=== PATIENT | male | born 1970 | race Caucasian/White ===

== ENCOUNTER 2018-12-07 05:34 | Inpatient (IN) ==
[2018-11-24 13:38] LABS: Apearance,Urine CLEAR (Clear); Bilirubin,Urine Negative (Negative); Blood, Urine Negative (Negative); Glucose,Urine (UA) Negative (Negative); Ketones,Urine Negative (Negative); Nitrite,Urine Negative (Negative); Protein,Urine Negative; RBC,Urine 1 /HPF (0-4); Urine Color Yellow (Yellow); Urine Specific Gravity 1.006 (1.001-1.035); Urine Urobilinogen < 2.0 EU/DL (0.2-1.0); WBC,Urine <1 /HPF (0-6)
[2018-11-24 13:38] LABS: Basophils % 0.4 % (0.0-0.8); Eosinophils # 0.1 10*3/uL (0.0-0.87); Eosinophils % 1.8 % (0.00-10.9); Hematocrit 46.4 VOL% (42.0-52.0); Hemoglobin 16.4 GM/DL (14.0-18.0); Immature Granulocytes % 0.4 %; Immature Granulocytes Absolute 0.02 #; Lymphocytes # 1.5 10*3/uL (1.4-4.0); Lymphocytes % 28.2 % (21.2-54.2); Mean Corpuscular HGB Conc 35.3 GM/DL (32-36); Mean Corpuscular Volume 87.1 FL (87-102); Mean Platelet Volume 9.2 FL (9.6-12.0); Monocytes % 9.1 % (1.7-12.7); Neutrophils % 60.1 % (38.7-73.9); Platelet Count 192 T/CUMM (130-400); Red Blood Count 5.33 MC/CUMM (3.8-5.5); Red Cell Distribution Width 13.2 % (9.3-17.3); White Blood Count 5.1 T/CUMM (4-12)
[2018-11-24 14:05] LABS: Calcium 9.3 MG/DL (8.5-10.1); Osmolality,Calculated 281.1 MOS/KG (273-304)
[2018-12-07] MEDS ORDERED: cefTRIAXone 1,000 MG VIAL ONE (05:53)
[2018-12-07] MEDS ORDERED: ALVIMOPAN 12 MG CAPSULE ONE (05:53)
[2018-12-07] MEDS ORDERED: SODIUM PHOSPHATE ENEMA 133 ML BOTTLE RECTAL ONE ×2 (05:53→06:35)
[2018-12-07] MEDS ORDERED: cefTRIAXone 1,000 MG in SYRINGE 1 EACH IV ONE (06:00)
[2018-12-07] MEDS ORDERED: ALVIMOPAN 12 MG CAPSULE PO ONE (06:00)
[2018-12-07] MEDS: LACTATED RINGERS 1,000 ML IV SCH ×2 (06:21→15:06)
[2018-12-07] MEDS ORDERED: FAMOTIDINE 20 MG TABLET PO ONE (06:35)
[2018-12-07] MEDS ORDERED: FAMOTIDINE 20 MG TABLET ONE (06:37)
[2018-12-07] MEDS ORDERED: FUROSEMIDE 20 MG/2 ML VIAL ONE (06:46)
[2018-12-07] MEDS ORDERED: ACETAMINOPHEN 1,000 MG/100 ML VIAL IV ONE ×2 (06:46→13:54)
[2018-12-07] MEDS ORDERED: MANNITOL 12.5 GM/50 ML VIAL IV ONE (06:46)
[2018-12-07] MEDS ORDERED: ROPIVACAINE 0.5% 30 ML VIAL ONE (13:11)
[2018-12-07 13:26] LABS: Apearance,Urine CLEAR (Clear); Bilirubin,Urine Negative (Negative); Blood, Urine Large mg/dL (Negative); Glucose,Urine (UA) Negative (Negative); Ketones,Urine Negative (Negative); Mucus,Urine Occasional /LPF (Occasional); Nitrite,Urine Negative (Negative); Protein,Urine 30 MG/DL; RBC,Urine 360 /HPF (0-4); Squamous Epithelial Cell,Urine Occasional /HPF (0-10); Urine Color Yellow (Yellow); Urine Specific Gravity 1.008 (1.001-1.035); Urine Urobilinogen < 2.0 EU/DL (0.2-1.0); WBC,Urine 1 /HPF (0-6)
[2018-12-07] MEDS ORDERED: SEVOFLURANE 1 UNIT/15 MINUTE INH ONE (13:51)
[2018-12-07] MEDS ORDERED: PROPOFOL 200 MG/20 ML VIAL IV ONE (13:53)
[2018-12-07] MEDS ORDERED: LIDOCAINE 2% 5 ML VIAL ONE (13:53)
[2018-12-07] MEDS ORDERED: fentaNYL 100 MCG/2 ML VIAL ONE (13:54)
[2018-12-07] MEDS ORDERED: PHENYLEPHRINE 1 MG/10 ML SYRINGE IV ONE (13:54)
[2018-12-07] MEDS ORDERED: GLYCOPYRROLATE 0.4 MG/2 ML VIAL ONE (13:54)
[2018-12-07] MEDS ORDERED: ONDANSETRON 4 MG/2 ML VIAL ONE (13:54)
[2018-12-07] MEDS ORDERED: MIDAZOLAM 2 MG/2 ML VIAL ONE (13:54)
[2018-12-07] MEDS ORDERED: ROCURONIUM 100 MG/10 ML VIAL IV ONE (13:55)
[2018-12-07] MEDS ORDERED: NEOSTIGMINE 10 MG/10 ML VIAL ONE (13:55)
[2018-12-07] MEDS ORDERED: LACTATED RINGERS 1,000 ML IV ONE (13:55)
[2018-12-07] MEDS ORDERED: ONDANSETRON 4 MG/2 ML VIAL IV PRN (13:58)
[2018-12-07] MEDS: MEPERIDINE 25 MG/1 ML VIAL IV PRN ×2 (14:05→14:25)
[2018-12-07] MEDS ORDERED: HYDROmorphone PCA 30 MG/30 ML SYRINGE IV ONE (14:15)
[2018-12-07] MEDS: HYDROmorphone PCA 30 MG/30 ML SYRINGE IV SCH (14:23)
[2018-12-07] MEDS ORDERED: MEPERIDINE 25 MG/1 ML VIAL ONE (14:24)
[2018-12-07] MEDS: DEXTROSE 5% NACL 0.45% 1,000 ML IV SCH (15:28)
[2018-12-07 16:04] LABS: Hematocrit 43.3 VOL% (42.0-52.0); Hemoglobin 15.4 GM/DL (14.0-18.0)
[2018-12-07] MEDS: ONDANSETRON 4 MG/2 ML VIAL IV PRN (17:28)
[2018-12-08] MEDS: DEXTROSE 5% NACL 0.45% 1,000 ML IV SCH ×2 (01:37→11:05)
[2018-12-08] MEDS: ONDANSETRON 4 MG/2 ML VIAL IV PRN ×4 (01:48→15:21)
[2018-12-08] MEDS: diphenhydrAMINE 50 MG/1 ML VIAL IV PRN ×2 (05:49→11:14)
[2018-12-08 06:10] LABS: Basophils % 0.1 % (0.0-0.8); Eosinophils % 0.3 % (0.00-10.9); Hematocrit 40.8 VOL% (42.0-52.0); Hemoglobin 14.3 GM/DL (14.0-18.0); Immature Granulocytes % 0.3 %; Immature Granulocytes Absolute 0.02 #; Lymphocytes # 1.1 10*3/uL (1.4-4.0); Lymphocytes % 14.6 % (21.2-54.2); Mean Corpuscular Volume 88.7 FL (87-102); Mean Platelet Volume 9.4 FL (9.6-12.0); Monocytes % 12.2 % (1.7-12.7); Neutrophils % 72.5 % (38.7-73.9); Platelet Count 152 T/CUMM (130-400); Red Cell Distribution Width 13.4 % (9.3-17.3); White Blood Count 7.4 T/CUMM (4-12)
[2018-12-08 06:20] LABS: Calcium 8.1 MG/DL (8.5-10.1); Osmolality,Calculated 278.5 MOS/KG (273-304)
[2018-12-08] MEDS: HYDROmorphone PCA 30 MG/30 ML SYRINGE IV SCH (14:36)
[2018-12-09] MEDS: DEXTROSE 5% NACL 0.45% 1,000 ML IV SCH (00:40)
[2018-12-09] MEDS: diphenhydrAMINE 50 MG/1 ML VIAL IV PRN (00:41)
[2018-12-09] MEDS: ONDANSETRON 4 MG/2 ML VIAL IV PRN (00:43)
[2018-12-09 06:04] LABS: Calcium 8.6 MG/DL (8.5-10.1); Osmolality,Calculated 280.3 MOS/KG (273-304)
[2018-12-09] MEDS ORDERED: oxyCODONE/ACETAMINOPHEN 5-325 MG TABLET PO PRN ×2 (08:48→08:57)
[2018-12-10 13:06] VITALS: BP 128/86
== END 2018-12-10 14:45 | disposition home or self-care (01) | DRG 658 ==
LOC: N.OR 05:34 → N.SDSINP 05:34 → N.5E 15:12
PROVIDERS: ADMIT Urology; ATTEND Urology